=== PATIENT | female | born 1950 | race Hispanic/Latino ===

== ENCOUNTER 2016-04-13 12:20 | Outpatient (CLI) | payer MEDICARE, OTHER ==
--- NOTE | 2016-04-13 14:27 | XRay Report ---
BONE SURVEY METASTATIC History: Multiple myeloma, restaging. Findings: Multiple radiographs of the axial and proximal appendicular skeleton were obtained. There is no evidence for abnormal blastic or lytic bony lesions. No fracture. Mild scoliosis is noted. Impression: No abnormal bony production or destruction is appreciated.
== END 2016-04-13 12:21 | disposition home or self-care (01) ==
LOC: SPVIMAG 12:20
PROVIDERS: ATTEND Internal Medicine Hematology & Oncology
DX: C79.51 Secondary malignant neoplasm of bone (principal); M41.9 Scoliosis, unspecified; Z87.898 Personal history of other specified conditions
CPT/HCPCS: 77074